=== PATIENT | male | born 1985 | race Caucasian/White ===

== ENCOUNTER → 2018-05-19 18:42 | Outpatient (CLI) | payer OTHER | END | disposition home or self-care (01) | LOC: D.LABREF 18:42 | DX: R82.90 Unspecified abnormal findings in urine (principal) ==

== ENCOUNTER → 2018-05-21 07:35 | Outpatient (CLI) | payer OTHER | END | disposition home or self-care (01) | LOC: D.US 05-20 13:30 → D.CT 05-20 17:00 → D.US 07:35 | DX: R31.21 Asymptomatic microscopic hematuria (principal) ==